=== PATIENT | male | born 1985 | race Caucasian/White ===

== ENCOUNTER → 2016-11-12 | Day surgery (SDC) | payer OTHER ==
[~2016-11-12] VITALS: Ht 180.3 cm; Wt 81.6 kg
[~2016-11-12] MED LIST: ACETAMINOPH W/CODEINE #3 TAB UD PO PRN; BUPIVACAINE/EPIN 0.5% 30 ML VIAL XX ONE; GLYCOPYRROLATE INJ 0.2 MG/ML 2 ML VIAL As Ordered ONE; IBUP-1114 PO; LIDOCAINE 2% INJ 100 MG/5 ML SDV (FOR ANES.) As Ordered ONE; LIDOCAINE W/EPINEPHRINE 1% 20ML VIAL XX ONE; LR 1,000 ML IV ONE; LR 1,000 ML IV SCH; MEPERIDINE INJ 25 MG/ML VIAL (J2175) IV PRN; METOCLOPRAMIDE INJ 10MG/2ML VIAL (J2765) IV PRN; MIDAZOLAM INJ 2 MG/2 ML VIAL (J2250) As Ordered ONE; MORPHINE 10 MG/ML 1ML VIAL IV PRN; NEOSTIGMINE 1MG/ML 5 ML SYRINGE (J2710) As Ordered ONE; ONDANSETRON 4MG/2ML VIAL (J2405) As Ordered ONE; ONDANSETRON 4MG/2ML VIAL (J2405) IV PRN; PROPOFOL 200 MG/20 ML VIAL As Ordered ONE; ROCURONIUM BROMIDE 50 MG/5 ML VIAL As Ordered ONE; SUCCINYLCHOLINE 100 MG/5 ML SYRINGE (J0330) As Ordered ONE; dexameTHASONE 4 MG/ML 1ML VIAL (J1100) As Ordered ONE; fentaNYL 100 MCG/2 ML INJECTION (J3010) As Ordered ONE; fentaNYL 100 MCG/2 ML INJECTION (J3010) IV PRN
[2016-11-12 17:45] VITALS: BP 137/71
--- NOTE | 2016-11-13 07:27 | RO ---
DATE OF PROCEDURE: 11/12/2016 PREPROCEDURE DIAGNOSIS: Chronic tonsillitis. POSTPROCEDURE DIAGNOSIS: Chronic tonsillitis. PROCEDURE: Tonsillectomy. SURGEON: Dr. Chandra Hamilton SUPERVISOR P[employer]URE: ANESTHESIA: ESTIMATED BLOOD LOSS: DESCRIPTION OF OPERATION: Under general anesthesia with the patient intubated, the patient was draped in the usual manner. A Mcarthur-Demario mouth gag was inserted. The tonsil area was infiltrated with lidocaine and epinephrine and Marcaine. Using a Coblator with setting of 6 and 4, the tonsil was dissected free from its bed on both sides. The base and apex and other areas were cauterized with a setting of 4 on the Coblator. The patient tolerated the procedure well. No blood loss. A nasogastric tube was passed to suction air from the esophagus. The patient tolerated the procedure well and was extubated and transferred to the recovery room in excellent condition.
== END | disposition home or self-care (01) ==
LOC: M SDC 12:13
PROVIDERS: ATTEND Otolaryngology
DX: J35.01 Chronic tonsillitis (principal); Z88.0 Allergy status to penicillin
CPT/HCPCS: 42826; 88302; J0330; J1100; J2250; J2405; J2710; J3010